=== PATIENT | male | born 1995 | race Two or more races ===

== ENCOUNTER 2020-12-18 07:29 | Emergency (ER) | payer SELFPAY ==
[~2020-12-18] VITALS: Ht 175.3 cm; Wt 63.5 kg
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
[2020-12-18 08:17] LABS: APPEARANCE,URINE SLIGHTLY CLOUDY; BILIRUBIN, URINE NEGATIVE (NEGATIVE); GLUCOSE, URINE (UA) NEGATIVE (NEGATIVE); KETONES,URINE 4+ (NEGATIVE); LEUKOCYTE ESTERASE ,URINE 1+ (NEGATIVE); NITRITE,URINE NEGATIVE (NEGATIVE); PH,URINE 6 (4.5-8.0); PROTEIN,URINE 2+ (NEGATIVE); UROBILINOGEN,URINE 1 MG/DL (0.0-1.0)
[2020-12-18 08:17] LABS: HEMATOCRIT 46.8 % (42.0-52.0); HEMOGLOBIN 15.3 G/DL (14.2-18.0); MEAN CORPUSCULAR VOLUME 97 FL (80-99); PLATELET COUNT 309 K/UL (150-450); RED BLOOD COUNT 4.82 M/UL (4.70-6.10); RED CELL DISTRIBUTION WIDTH 11.6 % (11.6-14.8); WHITE BLOOD COUNT 13.7 K/UL (4.8-10.8)
[2020-12-18 08:20] LABS: COLOR,URINE YELLOW
[2020-12-18 08:24] LABS: ANION GAP 10 mmol/L (5-15); BLOOD UREA NITROGEN 18 mg/dL (7-18); CALCIUM 10.2 MG/DL (8.5-10.1); CARBON DIOXIDE 31 MMOL/L (21-32); CHLORIDE 101 MMOL/L (98-107); CREATININE 1.1 MG/DL (0.55-1.30); POTASSIUM 3.8 MMOL/L (3.5-5.1); SODIUM 142 MMOL/L (136-145)
[2020-12-18 08:34] LABS: ALANINE AMINOTRANSFERASE 32 U/L (12-78); ALBUMIN 5.1 G/DL (3.4-5.0); ALBUMIN/GLOBULIN RATIO 1.3 (1.0-2.7); ALKALINE PHOSPHATASE 86 U/L (46-116); ASPARTATE AMINO TRANSFERASE 26 U/L (15-37); BILIRUBIN,TOTAL 2.1 MG/DL (0.2-1.0)
[2020-12-18 08:38] LABS: BILIRUBIN,DIRECT 0.3 MG/DL (0.0-0.3)
[2020-12-18] MEDS ORDERED: FAMOTIDINE20 MG ORAL (09:33)
[2020-12-18] MEDS ORDERED: ONDANSETRON ODT4 MG BC (09:33)
--- NOTE | 2020-12-18 09:40 | Emergency Room Report ---
History of Present Illness General Chief Complaint: Vomiting Source: Patient Present Illness HPI 24-year-old male presents for evaluation. Presenting with abdominal pain nausea and vomiting for the last 3 days. Pain is epigastric, burning, 5 out of 10, nonradiating. Admits to marijuana and methamphetamine use. Denies chest pain or shortness of breath. Denies SI or HI. Denies hearing voices. No other ag gravating relieving factors. Denies any other associated symptoms Allergies: Coded Allergies: Shrimp (Verified Allergy, Unknown, 12/18/20) COVID-19 Screening Contact w/high risk pt: No Experienced COVID-19 symptoms?: Yes COVID-19 Testing performed [employer]: Yes COVID-19 Screening: Negative COVID-19 COVID-19 Testing Source: supervisor tumbling and rolling Patient History Past Medical History: none Past Surgical History: none Pertinent Family History: none Social History: Reports: drug use; Denies: smoking, alcohol use Immunizations: UTD Reviewed Nursing Documentation: PMH: Agreed; PSxH: Agreed Nursing Documentation-PMH Past Medical History: No Stated History Review of Systems All Other Systems: negative except mentioned in HPI Physical Exam Vital Signs Date Time Temp Pulse Resp B/P (MAP) Pulse Ox O2 Delivery O2 Flow Rate FiO2 12/18/20 07:44 97.7 76 16 102/65 (77) 99 Room Air Sp02 EP Interpretation: reviewed, normal General Appearance: no apparent distress, alert, GCS 15, non-toxic Head: normocephalic, atraumatic Eyes: bilateral eye normal inspection, bilateral eye PERRL ENT: hearing grossly normal, normal pharynx, no angioedema, normal voice Neck: full range of motion, supple/symm/no masses Respiratory: chest non-tender, lungs clear, normal breath sounds, speaking full sentences Cardiovascular #1: regular rate, rhythm, no edema Cardiovascular #2: 2+ carotid (R), 2+ carotid (L), 2+ radial (R), 2+ radial (L), 2+ dorsalis pedis (R), 2+ dorsalis pedis (L) Gastrointestinal: normal bowel sounds, non tender, soft, non-distended, no guarding, no rebound Rectal: deferred Genitourinary: normal inspection, no CVA tenderness Musculoskeletal: back normal, normal range of motion, gait/station normal, non- tender Neurologic: alert, motor strength/tone normal, oriented x3, sensory intact, responsive, speech normal Psychiatric: judgement/insight normal, memory normal, mood/affect normal, no suicidal/homicidal ideation Reflexes: 3+ bicep (R), 3+ bicep (L), 3+ tricep (R), 3+ tricep (L), 3+ knee (R), 3+ knee (L) Lymphatic: no adenopathy Medical Decision Making Homeless Attestation I, The treating physician Dr. Person, have assessed and agrees that patient is medically stable for discharge to an outpatient disposition. Diagnostic Impression: Primary Impression: Substance abuse Additional Impression: Vomiting Qualified Codes: R11.2 - Nausea with vomiting, unspecified ER Course Hospital Course 24-year-old male with nausea and vomiting. History of marijuana methamphetamine use differential diagnosis: gastritis, SBO, cholecystits Clinical course Patient placed on stretcher. On cardiac specialist. After initial history and physical I ordered labs, IV fluids, Zofran and pepcid Labs - minmal leukocytosis, no electrolyte abnormalities, LFTs normal, UTox + THC and amphetamines On reassessment symptoms improved. Discussed findings with patient. Safe for discharge with close outpatient follow-up I feel this is a highly complex case requiring extensive working including EKG/Rhythm strip, Xray/CT/US, Blood/urine lab work, repeat exams while in ED, and administration of strong opiates/narcotics for pain control, admission to hospital or close patient follow up. Diagnosis - substance abuse, vomiting Stable and discharged to home with prescriptions for pepcid and zofran. Foll owup with PMD. Return to ED if symptoms recur or worsen Laboratory Tests Test 12/18/20 07:57 12/18/20 08:04 White Blood Count 13.7 K/UL (4.8-10.8) H Red Blood Count 4.82 M/UL (4.70-6.10) Hemoglobin 15.3 G/DL (14.2-18.0) Hematocrit 46.8 % (42.0-52.0) Mean Corpuscular Volume 97 FL (80-99) Mean Corpuscular Hemoglobin 31.7 PG (27.0-31.0) H Mean Corpuscular Hemoglobin Concent 32.7 G/DL (32.0-36.0) Red Cell Distribution Width 11.6 % (11.6-14.8) Platelet Count 309 K/UL (150-450) Mean Platelet Volume 5.7 FL (6.5-10.1) L Neutrophils (%) (Auto) % (45.0-75.0) Lymphocytes (%) (Auto) % (20.0-45.0) Monocytes (%) (Auto) % (1.0-10.0) Eosinophils (%) (Auto) % (0.0-3.0) Basophils (%) (Auto) % (0.0-2.0) Neutrophils % (Manual) Pending Lymphocytes % (Manual) Pending Platelet Estimate Pending Platelet Morphology Pending Sodium Level 142 MMOL/L (136-145) Potassium Level 3.8 MMOL/L (3.5-5.1) Chloride Level 101 MMOL/L (98-107) Carbon Dioxide Level 31 MMOL/L (21-32) Anion Gap 10 mmol/L (5-15) Blood Urea Nitrogen 18 mg/dL (7-18) Creatinine 1.1 MG/DL (0.55-1.30) Estimat Glomerular Filtration Rate > 60 mL/min (>60) Glucose Level 91 MG/DL (74-106) Calcium Level 10.2 MG/DL (8.5-10.1) H Total Bilirubin 2.1 MG/DL (0.2-1.0) H Direct Bilirubin 0.3 MG/DL (0.0-0.3) Aspartate Amino Transf (AST/SGOT) 26 U/L (15-37) Alanine Aminotransferase (ALT/SGPT) 32 U/L (12-78) Alkaline Phosphatase 86 U/L (46-116) Total Protein 8.9 G/DL (6.4-8.2) H Albumin 5.1 G/DL (3.4-5.0) H Globulin 3.8 g/dL Albumin/Globulin Ratio 1.3 (1.0-2.7) Lipase 341 U/L (73-393) Urine Color Yellow Urine Appearance Slightly cloudy Urine pH 6 (4.5-8.0) Urine Specific [place] 1.025 (1.005-1.035) Urine Protein 2+ (NEGATIVE) H Urine Glucose (UA) Negative (NEGATIVE) Urine Ketones 4+ (NEGATIVE) H Urine Blood Negative (NEGATIVE) Urine Nitrite Negative (NEGATIVE) Urine Bilirubin Negative (NEGATIVE) Urine Urobilinogen 1 MG/DL (0.0-1.0) H Urine Leukocyte Esterase 1+ (NEGATIVE) H Urine RBC 0 /HPF (0 - 0) Urine WBC 2-4 /HPF (0 - 0) Urine Squamous Epithelial Cells Few /LPF (NONE/OCC) Urine Bacteria Occasional /HPF (NONE) Urine Mucus Few /LPF (NONE/OCC) H Urine Sperm Few /LPF (NONE) Urine Opiates Screen Negative (NEGATIVE) Urine Barbiturates Screen Negative (NEGATIVE) Phencyclidine (PCP) Screen Negative (NEGATIVE) Urine Amphetamines Screen Positive (NEGATIVE) H Urine Benzodiazepines Screen Negative (NEGATIVE) Urine Cocaine Screen Negative (NEGATIVE) Urine Marijuana (THC) Screen Positive (NEGATIVE) H Last Vital Signs Date Time Temp Pulse Resp B/P (MAP) Pulse Ox O2 Delivery O2 Flow Rate FiO2 12/18/20 08:23 76 16 Room Air 12/18/20 07:44 97.7 102/65 (77) 99 Status: improved Disposition: OTH-HOMELESS Condition: Stable Scripts Famotidine* (Pepcid 20mg tablet*) 20 Mg Tablet 20 MG ORAL DAILY for Gerd, #30 TAB 0 Refills Prov: Charles Person MD 12/18/20 Ondansetron Odt* (ZOFRAN ODT*) 4 Mg Tab.rapdis 4 MG BC EVERY 6 HOURS PRN for Nausea & Vomiting, #20 TAB 0 Refills Prov: Charles Person MD 12/18/20 Referrals: NOT CHOSEN IPA/,REFERRING (PCP) [facility] Patient Instructions: Finding Treatment for Addiction Charles Person MD Dec 18, 2020 09:40
[2020-12-18 10:10] VITALS: BP 122/72
== END 2020-12-18 15:42 | disposition other institution (70) ==
LOC: EMR 08:13
DX: F19.10 Other psychoactive substance abuse, uncomplicated (principal); R11.2 Nausea with vomiting, unspecified; D72.829 Elevated white blood cell count, unspecified
CPT/HCPCS: 36415; 80053; 80307; 81003; 82248; 83690; 85007; 85025; 96374; 96375; 99284; J2405; S0028